=== PATIENT | female | born 1965 | race Caucasian/White ===

== ENCOUNTER 2017-06-29 12:05 | Emergency (ER) | payer OTHER ==
[~2017-06-29] VITALS: Ht 167.6 cm; Wt 63.5 kg
[~2017-06-29 12:05] MED LIST: CEPH500 PO; HYDACE5 PO; IBUP600 PO; OLME20 PO; Veetids 500500 MG PO
[2017-06-29] MEDS ORDERED: Norco 5-325 Ta1 EACH PO (13:12)
[2017-06-29] MEDS ORDERED: IBUP800 PO (13:12)
== END 2017-06-29 13:52 | disposition home or self-care (01) ==
LOC: ER 12:05
DX: S40.022A Contusion of left upper arm, initial encounter (principal); F17.210 Nicotine dependence, cigarettes, uncomplicated; V49.9XXA Car occupant (driver) (passenger) injured in unspecified traffic accident, initial encounter
CPT/HCPCS: 73060; 73080; 99283

== ENCOUNTER 2023-06-21 11:10 | Day surgery (SDC) | payer OTHER ==
[~2023-06-21] VITALS: Ht 165.1 cm; Wt 73.7 kg
[~2023-06-21 11:10] MED LIST changes: +ALBU90OI INH; +Crestor20 MG PO; +IBUP800 PO; +LISI5 PO; +Lactated Ringer's 1,000 ML IV ONE; +Norco 5-325 Ta1 EACH PO; +OMEP20ER PO; +propofoL 50 ML IV ONE
[2023-06-21] MEDS ORDERED: Lactated Ringer's 1,000 ML IV ONE (11:38)
--- NOTE | 2023-06-21 11:40 | NUR ---
06/21/23 1140 CADE IBRAHIM DOCTOR RUNNING AHEAD OF SCHEDULE. PT BEING ADMITTED.
[2023-06-21 12:44] VITALS: BP 114/64
--- NOTE | 2023-06-21 12:47 | NUR ---
06/21/23 1247 CADE IBRAHIM PT TO ROOM FOR RECOVERY, PT TOLERATING PO INTAKE, AWAKE AND ORIENTED. ALL QUESTIONS ASKED AND ANSWERED. [employer] FACULT[employer] MEMBER OUT VIA WC WITH MACARIO KHALIL
== END 2023-06-21 12:46 | disposition home or self-care (01) ==
LOC: ORSCSDS 11:10
PROVIDERS: Specialist
PROC: 0DB58ZX Excision of Esophagus, Via Natural or Artificial Opening Endoscopic, Diagnostic (ICD-10-PCS; principal; 2023-06-21 12:30)
PROC: 0DB68ZX Excision of Stomach, Via Natural or Artificial Opening Endoscopic, Diagnostic (ICD-10-PCS; principal; 2023-06-21 12:30)
PROC: 0DBP8ZX Excision of Rectum, Via Natural or Artificial Opening Endoscopic, Diagnostic (ICD-10-PCS; principal; 2023-06-21 12:30)
PROC: 0DBN8ZX Excision of Sigmoid Colon, Via Natural or Artificial Opening Endoscopic, Diagnostic (ICD-10-PCS; principal; 2023-06-21 12:30)
DX: Z12.11 Encounter for screening for malignant neoplasm of colon (principal); R19.5 Other fecal abnormalities; Z80.0 Family history of malignant neoplasm of digestive organs; K21.9 Gastro-esophageal reflux disease without esophagitis; D12.5 Benign neoplasm of sigmoid colon; K62.1 Rectal polyp; K64.8 Other hemorrhoids; E78.5 Hyperlipidemia, unspecified; F17.210 Nicotine dependence, cigarettes, uncomplicated; Z79.899 Other long term (current) drug therapy
CPT/HCPCS: 88305; 88342; J2704; J7120